=== PATIENT | female | born 2000 | race Two or more races ===

== ENCOUNTER → 2022-01-18 | Emergency (ER) | payer OTHER ==
[~2022-01-18] VITALS: Ht 160 cm; Wt 52.2 kg
[~2022-01-18] MED LIST: IBUP600T27 PO
[2022-01-18 13:43] LABS: Urine WBC None Seen /hpf (0 - 5)
[2022-01-18 13:53] VITALS: BP 110/55
[2022-01-18 14:25] LABS: Urine Bacteria NONE SEEN /hpf (None Seen); Urine Blood 1+ /uL (Negative); Urine Mucus FEW (None Seen); Urine Specific Gravity 1.028 (1.001-1.035)
[2022-01-18 14:36] LABS: Basophils # (auto) 0.1 10 ^3/uL (0-0.2); Basophils % (auto) 0.8 % (0.0-2.0); Eosinophils # (auto) 0 10 ^3/uL (0-0.8); Eosinophils % (auto) 0.5 % (0.0-7.0); Hematocrit 39.7 % (36.0-46.0); Hemoglobin 13.7 g/dL (12.2-16.2); Lymphocytes # (auto) 1.7 10 ^3/uL (0.4-5.4); Lymphocytes % (auto) 23.5 % (10.0-50.0); Mean Corpuscular Hemoglobin 29.9 pg (28.0-32.0); Mean Corpuscular Hgb Conc. 34.5 g/dL (32.0-36.0); Mean Corpuscular Volume 86.9 fL (80.0-100.0); Monocytes # (auto) 0.6 10 ^3/uL (0-1.3); Monocytes % (auto) 7.7 % (0.0-12.0); Neutrophils # (auto) 4.9 10 ^3/uL (1.6-8.6); Neutrophils % (auto) 67.5 % (37.0-80.0); Nucleated Red Blood Cells % 0.2 %; Red Blood Cells 4.58 10^6/uL (4.0-5.20); Red Cell Distribution Width 14.2 % (11.8-14.3); White Blood Cell 7.3 10^3/uL (4.4-10.8)
[2022-01-18 15:00] LABS: Calcium 8.6 mg/dL (8.5-10.1); Potassium 3.9 mmol/L (3.5-5.1)
[2022-01-18 15:02] LABS: BUN/Creatinine Ratio 21.4
== END | disposition home or self-care (01) ==
LOC: ER 13:17
DX: N83.202 Unspecified ovarian cyst, left side (principal)
CPT/HCPCS: 36415; 76830; 76856; 80048; 81001; 81025; 85025